=== PATIENT | female | born 1950 ===

== ENCOUNTER 2020-07-30 08:44 | Day surgery (SDC) | payer OTHER | END 2020-07-30 13:40 | disposition home or self-care (01) | LOC: AMB-ENDOS 08:44 | PROVIDERS: ATTEND Colon & Rectal Surgery | DX: K62.89 Other specified diseases of anus and rectum (principal); K64.0 First degree hemorrhoids; Z20.828 Contact with and (suspected) exposure to other viral communicable diseases ==